=== PATIENT | male | born 1950 | race Caucasian/White ===

== ENCOUNTER 2021-05-14 15:59 | Emergency (ER) | payer MEDICARE ==
[2021-05-14 17:12] LABS: HEMOGLOBIN 16.3 gm/dl (14.0-17.5); RED BLOOD COUNT 4.92 M/UL (4.20-5.50); WHITE BLOOD COUNT 4.5 K/UL (4.5-11.0)
[2021-05-14 17:33] LABS: BUN/CREATININE RATIO 18 (0-10)
== END 2021-05-14 17:15 | disposition left against medical advice (07) ==
LOC: ER1 15:59
PROVIDERS: Physician Assistant
DX: U07.1 COVID-19 (principal)
CPT/HCPCS: 80053; 83690; 85025; 99281; U0002

== ENCOUNTER 2021-05-17 08:31 | Inpatient (IN) | payer MEDICARE ==
[~2021-05-17] VITALS: Ht 172.7 cm; Wt 74.8 kg
[2021-05-17 09:54] LABS: HEMOGLOBIN 16.2 gm/dl (14.0-17.5); RED BLOOD COUNT 4.9 M/UL (4.20-5.50); WHITE BLOOD COUNT 4.9 K/UL (4.5-11.0)
[2021-05-17 10:30] LABS: BUN/CREATININE RATIO 17 (0-10)
[2021-05-17] MEDS ORDERED: MUCINEX DM ER1 EACH PO (12:48)
[2021-05-17] MEDS ORDERED: AMOXICILLIN500 MG PO (12:53)
[2021-05-17] MEDS ORDERED: ELDERBERRY PO (12:57)
[2021-05-17] MEDS ORDERED: ZINC50 M1 PO (12:57)
[2021-05-17] MEDS ORDERED: VITAMIN D325 MCG PO (12:58)
[2021-05-18 07:38] LABS: HEMOGLOBIN 14.4 gm/dl (14.0-17.5); RED BLOOD COUNT 4.53 M/UL (4.20-5.50); WHITE BLOOD COUNT 3.8 K/UL (4.5-11.0)
[2021-05-18 08:15] LABS: BUN/CREATININE RATIO 19 (0-10)
[2021-05-19 03:52] LABS: HEMOGLOBIN 15.2 gm/dl (14.0-17.5); RED BLOOD COUNT 4.62 M/UL (4.20-5.50); WHITE BLOOD COUNT 6.3 K/UL (4.5-11.0)
[2021-05-19 04:20] LABS: BUN/CREATININE RATIO 26 (0-10)
[2021-05-20 03:30] LABS: HEMOGLOBIN 15.1 gm/dl (14.0-17.5); RED BLOOD COUNT 4.66 M/UL (4.20-5.50); WHITE BLOOD COUNT 7.4 K/UL (4.5-11.0)
[2021-05-20 04:42] LABS: BUN/CREATININE RATIO 31 (0-10)
[2021-05-21 03:33] LABS: RED BLOOD COUNT 4.7 M/UL (4.20-5.50); WHITE BLOOD COUNT 8.7 K/UL (4.5-11.0)
[2021-05-21 04:33] LABS: BUN/CREATININE RATIO 33 (0-10)
[2021-05-21 12:13] LABS: HBSAG SCREEN Negative (Negative); HEP A AB, IGM Negative (Negative); HEP B CORE AB, IGM Negative (Negative); HEP C VIRUS AB <0.1 (0.0-0.9)
[2021-05-22 02:36] LABS: HEMOGLOBIN 15.9 gm/dl (14.0-17.5); RED BLOOD COUNT 4.87 M/UL (4.20-5.50); WHITE BLOOD COUNT 8.9 K/UL (4.5-11.0)
[2021-05-22 03:04] LABS: BUN/CREATININE RATIO 41 (0-10)
[2021-05-23 04:55] LABS: HEMOGLOBIN 16.1 gm/dl (14.0-17.5); RED BLOOD COUNT 4.9 M/UL (4.20-5.50); WHITE BLOOD COUNT 8.1 K/UL (4.5-11.0)
[2021-05-23 05:24] LABS: BUN/CREATININE RATIO 46 (0-10)
[2021-05-24 04:32] LABS: HEMOGLOBIN 15.2 gm/dl (14.0-17.5); RED BLOOD COUNT 4.65 M/UL (4.20-5.50)
[2021-05-24 04:33] LABS: WHITE BLOOD COUNT 15.4 K/UL (4.5-11.0)
--- NOTE | 2021-05-24 12:18 | NUR ---
SPOKE WITH DR. FLOOD ABOUT DECREASED URINE OUTPUT. ORDERED ALBUMIN @1211
[2021-05-25 05:17] LABS: HEMOGLOBIN 12.9 gm/dl (14.0-17.5); RED BLOOD COUNT 3.92 M/UL (4.20-5.50)
[2021-05-26 05:59] LABS: HEMOGLOBIN 11.7 gm/dl (14.0-17.5); RED BLOOD COUNT 3.6 M/UL (4.20-5.50); WHITE BLOOD COUNT 12.3 K/UL (4.5-11.0)
[2021-05-27 03:39] LABS: HEMOGLOBIN 11.4 gm/dl (14.0-17.5); RED BLOOD COUNT 3.51 M/UL (4.20-5.50); WHITE BLOOD COUNT 12.7 K/UL (4.5-11.0)
--- NOTE | 2021-05-27 10:33 | NUR ---
SPOKE WITH KEDAR AT DR. SIMPSON'S OFFICE AND INFORMED HIM NEW PATIENT CONSULT PER DR. FLOOD.
[2021-05-27 13:18] LABS: HEMOGLOBIN 11.6 gm/dl (14.0-17.5); RED BLOOD COUNT 3.6 M/UL (4.20-5.50)
--- NOTE | 2021-05-27 13:32 | NUR ---
[address] FLOOD REGARDING CRITICAL INR. STATED TO STOP AGGRASTAT AND DO NOT INITIATE HEPARIN. REPEAT INR WITH [facility].
--- NOTE | 2021-05-27 16:32 | NUR ---
left message with dr. lee to call back. reporting critical lab value.
[2021-05-28 05:12] LABS: HEMOGLOBIN 10.2 gm/dl (14.0-17.5); WHITE BLOOD COUNT 13.1 K/UL (4.5-11.0)
[2021-05-28 05:27] LABS: RED BLOOD COUNT 3.2 M/UL (4.20-5.50)
--- NOTE | 2021-05-28 10:12 | NUR ---
SPOKE WITH DR. SIMPSON IN REGARDS TO SODIUM BICARB DRIP AND CONFIRMED IT WAS A CONTINUOUS INFUSION AND NOT A ONE TIME INFUSION.
[2021-05-29 03:29] LABS: HEMOGLOBIN 9.7 gm/dl (14.0-17.5); RED BLOOD COUNT 3.08 M/UL (4.20-5.50); WHITE BLOOD COUNT 11.6 K/UL (4.5-11.0)
[2021-05-30 05:26] LABS: HEMOGLOBIN 9.8 gm/dl (14.0-17.5); RED BLOOD COUNT 3.11 M/UL (4.20-5.50); WHITE BLOOD COUNT 12.3 K/UL (4.5-11.0)
[2021-05-31 05:12] LABS: HEMOGLOBIN 9.6 gm/dl (14.0-17.5); RED BLOOD COUNT 2.98 M/UL (4.20-5.50); WHITE BLOOD COUNT 13.2 K/UL (4.5-11.0)
[2021-05-31 13:42] LABS: HEMOGLOBIN 11.3 gm/dl (14.0-17.5)
[2021-06-01 04:20] LABS: HEMOGLOBIN 9.8 gm/dl (14.0-17.5); RED BLOOD COUNT 3.03 M/UL (4.20-5.50); WHITE BLOOD COUNT 16.5 K/UL (4.5-11.0)
[2021-06-01 19:08] LABS: HEMOGLOBIN 11.5 gm/dl (14.0-17.5)
--- NOTE | 2021-06-02 02:28 | NUR ---
06/01/21: 1830 PATIENT CONDITION ON START OF SHIFT DECLINED. OXYGEN SATURATION DOWN IN THE 70'S; MD AT BEDSIDE. NO ORDERS GIVEN. PATIENTS OXYGEN SATURATION REMAINED IN THE 80'S. MD AND FAMILY AWARE. FAMILY TO COME SEE PATIENT. 06/02/21: 0030: PATIENTS HR 150'S AND BACK DOWN TO 100'S WITHIN MINUTES. EKG OBTAINED. SVT AND SINUS TACHYCARDIA NOTED ON THE MONITOR. 0052: MD MADE AWARE OF PATIENT CONDITION 0120: EKG OBTAINED PATIENT HR 150'S FOR A FEW AND RETURNS BACK TO THE LOW 100'S. 0200: PATIENT HR CONTINUES. MD AT BEDSIDE. ADENOSINE ORDERED. PATIENT ATTACHED TO THE CRASH CART MONITOR AND ADENOSINE ADMINISTERED HR 170. MD ORDERED TO START CARDIZEM DRIP TO KEEP HR LESS THAN 110.
--- NOTE | 2021-06-02 06:20 | NUR ---
0617: [facility] CONTACTED
== END 2021-06-02 04:31 | disposition expired | DRG 207 ==
LOC: ER1 08:31 → CDU 10:49 → PROG CARE 10:49 → CCU 10:49 → PROG CARE 17:46 → CCU 05-22 04:05
PROVIDERS: Emergency Medicine; Internal Medicine; Internal Medicine Nephrology; Internal Medicine Pulmonary Disease; Physician Assistant; ADMIT Internal Medicine
PROC: XW033E5 Introduction of Remdesivir Anti-infective into Peripheral Vein, Percutaneous Approach, New Technology Group 5 (ICD-10-PCS; 2021-05-17)
PROC: XW033H5 Introduction of Tocilizumab into Peripheral Vein, Percutaneous Approach, New Technology Group 5 (ICD-10-PCS; 2021-05-17)
PROC: 3E0333Z Introduction of Anti-inflammatory into Peripheral Vein, Percutaneous Approach (ICD-10-PCS; 2021-05-17)
PROC: 05HM33Z Insertion of Infusion Device into Right Internal Jugular Vein, Percutaneous Approach (ICD-10-PCS; 2021-05-17)
PROC: B543ZZA Ultrasonography of Right Jugular Veins, Guidance (ICD-10-PCS; 2021-05-17)
PROC: 8E0ZXY6 Isolation (ICD-10-PCS; 2021-05-17)
PROC: 5A09457 Assistance with Respiratory Ventilation, 24-96 Consecutive Hours, Continuous Positive Airway Pressure (ICD-10-PCS; 2021-05-21)
PROC: 5A1955Z Respiratory Ventilation, Greater than 96 Consecutive Hours (ICD-10-PCS; principal; 2021-05-23)
PROC: 0BH18EZ Insertion of Endotracheal Airway into Trachea, Via Natural or Artificial Opening Endoscopic (ICD-10-PCS; 2021-05-23)
PROC: 0DH67UZ Insertion of Feeding Device into Stomach, Via Natural or Artificial Opening (ICD-10-PCS; 2021-05-24)
PROC: 06HY33Z Insertion of Infusion Device into Lower Vein, Percutaneous Approach (ICD-10-PCS; 2021-05-30)
PROC: 3E033XZ Introduction of Vasopressor into Peripheral Vein, Percutaneous Approach (ICD-10-PCS; 2021-06-01)
DX: U07.1 COVID-19 (principal); A41.89 Other specified sepsis; J12.82 Pneumonia due to coronavirus disease 2019; J80 Acute respiratory distress syndrome; J15.9 Unspecified bacterial pneumonia; G93.41 Metabolic encephalopathy; N17.0 Acute kidney failure with tubular necrosis; R65.20 Severe sepsis without septic shock; E87.1 Hypo-osmolality and hyponatremia; M62.82 Rhabdomyolysis; E87.2 Acidosis; Z20.822 Contact with and (suspected) exposure to COVID-19; E87.0 Hyperosmolality and hypernatremia; N13.6 Pyonephrosis; J95.812 Postprocedural air leak; I82.4Z1 Acute embolism and thrombosis of unspecified deep veins of right distal lower extremity; Z23 Encounter for immunization; Z66 Do not resuscitate; D69.6 Thrombocytopenia, unspecified; I08.3 Combined rheumatic disorders of mitral, aortic and tricuspid valves; E86.0 Dehydration; E87.5 Hyperkalemia; I73.9 Peripheral vascular disease, unspecified; E87.8 Other disorders of electrolyte and fluid balance, not elsewhere classified; D72.829 Elevated white blood cell count, unspecified; T38.0X5A Adverse effect of glucocorticoids and synthetic analogues, initial encounter; Y83.9 Surgical procedure, unspecified as the cause of abnormal reaction of the patient, or of later complication, without mention of misadventure at the time of the procedure; Y92.238 Other place in hospital as the place of occurrence of the external cause; F41.9 Anxiety disorder, unspecified; R94.5 Abnormal results of liver function studies; Z79.01 Long term (current) use of anticoagulants; Z98.890 Other specified postprocedural states; Z82.49 Family history of ischemic heart disease and other diseases of the circulatory system
CPT/HCPCS: ECHO; 31500; 36415; 36600; 71045; 80048; 80053; 80074; 80076; 80202; 81001; 82436; 82550; 82553; 82728; 82803; 82962; 83036; 83540; 83550; 83605; 83690; 83735; 83874; 83880; 84100; 84132; 84133; 84295; 84300; 84484; 85014; 85018; 85025; 85027; 85379; 85610; 85730; 86140; 87040; 87081; 89050; 90935; 90937; 93005; 93306; 93970; 94003; 94640; 94660; 94664; 94760; 96374; 99281; 99285; A6212; C1752; C9113; J0153; J0692; J0883; J1100; J1630; J1644; J1650; J1940; J2060; J2250; J2370; J2704; J2765; J3010; J3370; J3475; J3486; J7030; J7050; J7070; J7120; P9047; Q0177; Q0249; Q9967; U0002